=== PATIENT | male | born 1960 | race Caucasian/White ===

== ENCOUNTER 2021-02-08 21:17 | Emergency (ER) | payer OTHER ==
[~2021-02-08] VITALS: Ht 167.6 cm; Wt 88.0 kg
[2021-02-08 22:09] LABS: BASOPHILS % 0.4 % (0.0-2.0); EOSINOPHILS % 0.2 % (0.0-5.0); HEMATOCRIT. 49.4 % (42.0-52.0); HEMOGLOBIN. 17.1 g/dL (14.0-18.0); LYMPHOCYTES % 9.1 % (20.0-50.0); MEAN CORPUSCULAR HEMOGLOBIN 31.5 pg (28.0-32.0); MEAN CORPUSCULAR VOLUME 91.1 fL (80.0-94.0); MEAN PLATELET VOLUME 8.1 fl (7.4-10.4); MONOCYTES % 3.1 % (2.0-8.0); NEUTROPHILS % 87.2 % (40.0-76.0); PLATELET 194 x1000/uL (130-400); RED BLOOD CELL COUNT 5.42 mill/uL (4.7-6.1); RED CELL DISTRIBUTION WIDTH 13.5 % (11.6-14.6)
[2021-02-08 22:18] LABS: CHLORIDE 104 mEq/L (98-107)
[2021-02-08 22:20] VITALS: BP 156/68
[2021-02-08] MEDS: KETOROLAC 30MG/ML VIAL IV STA (22:20)
[2021-02-08] MEDS: ONDANSETRON HCL 4MG/2ML INJ IV STA (22:21)
[2021-02-08] MEDS: SODIUM CHLORIDE 0.9% 1,000 ML IV ONE (22:21)
[2021-02-08] MEDS ORDERED: IOHEXOL-300 100 ML BOTTLE ONE (23:26)
[2021-02-08 23:46] LABS: CLARITY URINE CLEAR (CLEAR); COLOR URINE YELLOW (YELLOW); KETONES URINE 1+ (NEGATIVE); LEUKOCYTE ESTERASE URINE NEGATIVE (NEGATIVE); NITRITE URINE NEGATIVE (NEGATIVE); OCCULT BLOOD URINE TRACE (NEGATIVE); PH URINE 5.5 (4.5-8.0); PROTEIN URINE NEGATIVE (NEGATIVE); SPECIFIC GRAVITY URINE 1.066 (1.005-1.030); UROBILINOGEN URINE 0.2 E.U./dL (0.2-1.0)
[2021-02-09] MEDS ORDERED: DOCU-138 MT (00:10)
[2021-02-09] MEDS ORDERED: CIPR-263 MT (00:10)
[2021-02-09] MEDS ORDERED: IBUP-2029 MT (00:10)
[2021-02-09] MEDS ORDERED: METR500T MT (00:10)
== END 2021-02-09 01:03 | disposition home or self-care (01) ==
LOC: ER 21:17
DX: K57.92 Diverticulitis of intestine, part unspecified, without perforation or abscess without bleeding (principal)
CPT/HCPCS: 36415; 71045; 74177; 80053; 81003; 83690; 85025; 93005; 96361; 96374; 96375; 99285; J1885; J2405; J7030; Q9967

== ENCOUNTER 2021-10-09 20:14 | Emergency (ER) | payer OTHER ==
[~2021-10-09] VITALS: Ht 167.6 cm; Wt 86.0 kg
[~2021-10-09 20:14] MED LIST: CIPR-263 MT; DOCU-138 MT; IBUP-2029 MT; METR500T MT
[2021-10-09 20:56] VITALS: BP 149/92
== END 2021-10-10 04:05 | disposition left against medical advice (07) ==
LOC: ER 20:14
DX: Z53.21 Procedure and treatment not carried out due to patient leaving prior to being seen by health care provider (principal); R10.84 Generalized abdominal pain
CPT/HCPCS: 93005